=== PATIENT | female | born 1970 | race Caucasian/White ===

== ENCOUNTER → 2021-07-26 10:17 | Outpatient (BNVA) | payer OTHER, SELFPAY | PROVIDERS: PCP Internal Medicine; Referring Provider Internal Medicine; Visit Provider Nurse Practitioner Family ==

== ENCOUNTER 2021-09-19 08:05 | Day surgery (SDC) | payer OTHER, SELFPAY ==
[2021-09-12 16:31] VITALS: BMI 21.4
--- NOTE | 2021-09-19 08:34 | MHC.SHP ---
Pre-Procedural Eval Section A Date of Service: 09/19/21 The patient is an INPATIENT: No The History & Physical has been completed within 30 days and I have reviewed it.: No Section B Chief Complaint: Screening Details of Present Illness: colon cancer screening Relevant Family History (Specify if Yes): No Relevant Social History: None Present Medications: see Short Stay Collaborative assessment Medical History: Significant History (Menopausal state) History of Previous Operations: No relevant previous surgery Allergies: Allergies Allergy/AdvReac Type Severity Reaction Status Date / Time No Known Allergies Allergy Verified 07/26/21 10:30 Review of Systems Sugical H&P ROS: Negative: Constitution, Cardiovascular, Respiratory and Gastrointestinal Exam Surgical H&P Exam: Normal: Heart, Normal: Lungs and Normal: Extremities Plan Diagnosis/Plan: Unchanged I have reviewed the history and physical and performed a pertinent physical examination on my patient. No changes have occurred unless specified.
--- NOTE | 2021-09-19 09:21 | HO.ANESPROP2 ---
PMFSH Active Problems Active Problems: All Active Problems (Updated 08/20/20 @ 12:54 by Sarai Mejia MD) Menopausal state (Acute) Annual physical exam (Acute) Past Medical History Medical History (Updated 08/20/20 @ 12:54 by Sarai Mejia MD) Annual physical exam Menopausal state Family History Family History (Updated 07/26/21 @ 10:41 by Osiris Bazan) Father Parkinson disease Mother Breast cancer Family history of problems with anesthesia: No Surgical History History of Problems with Anesthesia: No Social History Social History Advance Directives: No Advance Directives Information Provided: Yes Meds Allergies Allergy/AdvReac Type Severity Reaction Status Date / Time No Known Allergies Allergy Verified 07/26/21 10:30 Exam Exam Date and Time: September 19, [id number] Height,Weight and Vital Signs: Height 5 ft 3 in Weight 54.885 kg Airway Mallampati Class: I TM Dist: >3cm Neck ROM: Full Heart: rrr Lungs: cta Assessment and Plan Assessment Anesthesia Assessment: Anesthesia Plan Discussed and Chart Reviewed Final Anesthetic Review Family History of Problems with Anesthesia: No History of Problems with Anesthesia: No NPO: Yes ASA Class: I Final Preanesthetic Review: No Changes in Pt Med Stat, Meds/Allgs Chart Reviewed and Consent Obtained/Reviewed Patient Risk: Intermediate Procedure Risk: Intermediate Anesthetic Plan Anesthetic Plan: MAC: Disposition: Standard PACU
--- NOTE | 2021-09-19 09:57 | W.PM.OPN ---
Operative Note Operative Note Date of Service: 09/19/21 Narrative: Pre-op diagnosis:?Colon cancer screening Post-op diagnosis:?other (Colon polyps, diverticulosis, hemorrhoids) Procedure:? COLONOSCOPY TILL CECUM WITH BIOPSIES AND SNARE POLYPECTOMY Consent: Indications for the procedure and potential complications of bleeding, perforation, reaction to medications and missed diagnosis were discussed with the patient and informed consent was obtained. Instrument: Olympus PCF H 190 L variable stiffness pediatric colonoscope Monitoring: Vital signs and clinical assessment, intermittent blood pressure monitoring, continuous EKG monitoring, Pulse oximetry and Carbon Dioxide monitoring were done throughout the procedure. Colon withdrawl time was 20 minutes. Procedure: The patient was placed in the left lateral decubitis position and pre-procedure medications were administered. After a digital rectal examination of the ano-rectum, the video colonoscope was inserted into the rectum and advanced through the colon to the cecum. The colonoscope was slowly withdrawn in a retrograde panoramic fashion and the colon mucosa was carefully examined including a retroflexed view of the rectum. Findings and interventions are described below. Procedure Difficulty: Without difficulty Findings: Terminal Ileum: Not evaluated Cecum:? A 3-4 mm polyp next to the appendicular orifice - removed with a cold bx Ascending Colon:? Normal Transverse Colon:? Normal Descending Colon:? Moderate diverticulosis Sigmoid Colon:? Moderate diverticulosis Rectum:? A 12-15 mm hyperplastic appearing polyp removed with a cold snare. Ano-rectum:? Moderate internal hemorrhoids Colon preparation:? Good after some irrigation Impression and Post Procedure Diagnosis: Colonoscopy Findings: Two small to medium sized polyps removed Moderate diverticulosis seen in the left colon Moderate hemorrhoids on retroflexed exam. Plan: Await pathology results Patient has an appointment on 10/04/21 in the GI Clinic with Jo Michaels FNP-BC . Repeat Colonoscopy interval based on path results - in 3-5 years if polyps are adenomatous and 10 years if polyps are hyperplastic. Above findings were reviewed with the patient and colon polyps and diverticulosis handouts were given in the discharge area Surgeon:?Rambo Candelario MD Anesthesia:?JAC (Roxana Saha CRNA) Was an Dance Therapist used for this Procedure?:?Yes Dance Therapist:?Jamie Singleton Estimated blood loss (mL):?0 Pathology:?other (A- CECAL POLYP? B- RECTAL POLYP) Condition:?stable Disposition:?PACU
[2021-09-19 10:07] VITALS: BP 137/81; PULSE 82; RESP 16; TEMP 37.1; O2SAT 100
[2021-09-19] MEDS: Lactated Ringers 1,000 ML 50 ML IVCONT (10:11)
[2021-09-19 11:25] VITALS: BP 101/55; PULSE 57; RESP 14; TEMP 36.5; O2SAT 96
[2021-09-19 11:40] VITALS: BP 95/60; PULSE 71; RESP 18; O2SAT 100
[2021-09-19 11:55] VITALS: BP 122/75; PULSE 67; RESP 18; O2SAT 100
== END 2021-09-19 12:42 | disposition home or self-care (01) ==
PROVIDERS: PCP Internal Medicine; Visit Provider Internal Medicine Gastroenterology
PROC: 0DJD8ZZ Inspection of Lower Intestinal Tract, Via Natural or Artificial Opening Endoscopic (ICD-10-PCS; CPT 45378; principal; 2021-09-19 09:20)
DX: Z12.11 Encounter for screening for malignant neoplasm of colon (principal); K63.5 Polyp of colon; K62.1 Rectal polyp; K57.30 Diverticulosis of large intestine without perforation or abscess without bleeding; K64.8 Other hemorrhoids
CPT/HCPCS: 45385; 45380; 88305

== ENCOUNTER 2021-09-22 16:39 | Outpatient (REF) | payer OTHER, SELFPAY ==
--- NOTE | ~2021-09-22 | XR_ITS ---
EXAMINATION: XR ABDOMEN WITH DECUBITUS VIEWS CLINICAL INDICATION: Unspecified abdominal pain. COMPARISON: None. TECHNIQUE: AP upright and supine views of the abdomen were obtained. FINDINGS: The bowel gas pattern is normal with no evidence of ileus or obstruction. Moderate stool burden in the colon. No free air on the upright view. No unusual soft tissue calcifications are noted. IUD overlies the pelvis. The bones are unremarkable. XR/XR abdomen w decubitus IMPRESSION: Nonobstructive bowel gas pattern. Moderate stool burden predominantly in the cecum and ascending colon.
== END 2021-09-22 16:40 | disposition home or self-care (01) ==
LOC: HO.XRAY 16:39
PROVIDERS: PCP Internal Medicine; Visit Provider Nurse Practitioner
DX: R10.9 Unspecified abdominal pain (principal)
CPT/HCPCS: 74021

== ENCOUNTER → 2021-10-04 10:48 | Outpatient (BNVA) | payer OTHER, SELFPAY | PROVIDERS: PCP Internal Medicine; Referring Provider Internal Medicine; Visit Provider Nurse Practitioner Family ==

== ENCOUNTER 2025-02-04 08:06 | Outpatient (REF) | payer OTHER, SELFPAY | END 2025-02-04 08:07 | disposition home or self-care (01) | LOC: HO.HOSX 08:06 | PROVIDERS: Visit Provider Physician Assistant | DX: Z13.89 Encounter for screening for other disorder (principal) ==

== ENCOUNTER 2025-02-05 09:22 | Outpatient (REF) | payer OTHER, SELFPAY ==
--- NOTE | ~2025-02-05 | XR_ITS ---
EXAMINATION: XR KNEE 3 VIEWS LEFT HISTORY: M25.562 - Pain in left knee COMPARISON: There are no prior studies available for comparison. FINDINGS: Standing AP views of both knees and additional lateral and sunrise patellar views of the left knee are submitted. Osseous mineralization is normal. There is no fracture or dislocation. The joint spaces are preserved. The soft tissues are unremarkable. There is no joint effusion. XR/XR knee LT 3V IMPRESSION: Unremarkable examination of the left knee. Electronically signed by: Noe Cantu MD 02/05/2025 10:57 AM EDT
== END 2025-02-05 09:23 | disposition home or self-care (01) ==
LOC: HO.HOSX 09:22
PROVIDERS: PCP Internal Medicine; Visit Provider Physician Assistant
DX: M25.562 Pain in left knee (principal)
CPT/HCPCS: 73562

== ENCOUNTER 2025-02-05 09:22 | Outpatient (AMB) | payer OTHER, SELFPAY ==
--- NOTE | 2025-02-05 09:31 | A.OFFVIS_ITS ---
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 Intake Note: Lora is a 54 year old female who presents today as a new patient with complaints of Left Knee Pain. Patient reports ongoing left knee pain for about 4-5 months. She denies injury. She explains that her pain is very mild, she has a focal point of pain that is felt at the lateral tibial plateau only with kneeling. She is a runner and she can run with no symptoms. She has been helping her son move furniture as he is moving out, but she does not recall hurting it. 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 She states that the pain is only present when she kneels down on the left knee. She is an avid runner and runs approximately 4 miles every other day but does not feel pain when she is running. She denies any catching or locking sensations. No pain with twisting or pivoting. She has no discomfort with going up and downstairs. She has had no treatment to date. [facility] Medical History (Updated 02/05/25 @ 10:04 by Ledy Powell PA-C) Hearing loss Normal breast exam Normal pelvic exam Menopausal state Annual physical exam Surgical History (Updated 02/15/22 @ 10:13 by Sarai Mejia MD) Hx of colonoscopy Family History Father Parkinson disease Mother Breast cancer Social History (Updated 02/15/22 @ 10:09 by Sarai Mejia MD) Household Members Other:: exercise 4 x a week, well balanced Housing: House Patient Tobacco Use Status: Never used Tobacco e-Cigarette/Vaping Use: Never Used Second Hand Smoke Exposure: No service: No Current occupational status: employed Cognitive needs: No Hearing needs: No Vision needs: No Review of Systems Const All systems reviewed & are unremarkable except as noted in HPI and below Physical Exam Const General: cooperative and no acute distress Orientation/consciousness: patient oriented x3 Resp Effort & Inspection: normal respiratory effort and able to speak in complete sentences Cardio Peripheral pulses: Peripheral pulses 2+ throughout Neuro General: patient oriented x3 Extrem Other: Left knee is normal to inspection. She has full range of motion with no crepitus. No tenderness with patellar grind. She does have some notable lateralization of the patella with range of motion. Calf is supple and nontender neurovascularly intact. Results Reviewed Results Reviewed: X-rays of the left knee obtained in the office today and reviewed by me show well-preserved joint space with mild lateralization of the patella. Assessment & Plan Assessment & Plan (1) Chondromalacia of left patella: Code(s): M22.42 - Chondromalacia patellae, left knee Category: Medical Plan: An order for physical therapy was placed to work on conditioning and posterior chain exercises. I explained to the patient with activities such as running and is important to work on conditioning exercises that help offset the load distributed through the knee. This will help to prevent further injury. She will increase activities as tolerated. I did recommend ibuprofen 800 mg 3 times a day for 2 weeks to help with a flare-up. She will contact our office if symptoms persist or worsen otherwise follow up as needed. Orders: Orders PT Evaluation and Treatment Today M22.42 - Chondromalacia patellae, left knee XR knee LT 3V Today M25.562 - Pain in left knee XR knee RT 1V Today M25.561 - Pain in right knee Coding Level of Care Code New Pt Level 3 (22702) Complex EM visit Add On G2211 Diagnoses Chondromalacia of left patella M22.42
== END 2025-02-05 10:18 | disposition home or self-care (01) ==
LOC: HO.HOS 09:22
PROVIDERS: PCP Internal Medicine; Visit Provider Physician Assistant
DX: M22.42 Chondromalacia patellae, left knee (principal)
CPT/HCPCS: 99203

== ENCOUNTER → 2025-02-05 09:50 | Outpatient (BNV) | payer OTHER, SELFPAY | PROVIDERS: PCP Internal Medicine; Visit Provider Radiology Diagnostic Radiology | DX: M25.562 Pain in left knee (principal) | CPT/HCPCS: 73562 ==

== ENCOUNTER 2025-06-24 11:42 | Outpatient (REF) | payer OTHER, SELFPAY ==
--- NOTE | ~2025-06-24 | XR_ITS ---
CLINICAL HISTORY: M79.641 - Pain in right hand 3 view right hand Comparison: None provided Findings: No fractures or dislocations. Mild multifocal degenerative changes greatest at the 1st metacarpophalangeal joint. This is within the region of the arrow marker. No erosions. No radiopaque foreign body. IMPRESSION: Mild multifocal degenerative changes greatest at the 1st metacarpophalangeal joint. This is within the region of the arrow marker. This document has been electronically signed by: Truong Dawson DO on 06/25/2025 10:22:06
--- OUTSIDE RECORDS SUMMARY | 2025-06-24 12:38 | XMS_ITS | Encounter Summary ---
Author Organization [facility] Address [address] [place] [id number] Care Team Providers Care Black Powder Glazing Operator Name Role Phone Unavailable Primary Care Provider Unavailabl e Encounter Details Date Type Department Care Team (Late st Contact Info) Description 01/17/2021 Orders Only Surgery [address] [place] [id number] Juan Carlos Turner MD [address] [place] [address] Social History Tobacco Use Types Packs/Day Years Used Date Smoking Tobacco: Never Assessed Comments Unknown Sex and Gender Information Value Date Recorded Sex Assigned at Not on file Legal Sex Female 8:03 AM EST Gender Identity Not on file Sexual Orientation Not on file documented as of this encounter Plan of Treatment Not on file documented as of this encounter Visit Diagnoses Not on filedocumented in this encounter
--- OUTSIDE RECORDS SUMMARY | 2025-06-24 12:38 | XMS_ITS | Clinical Summary ---
Author Organization [facility] Address [address] [place] [address] Care Team Providers Care Dog Races Manager Name Role Phone Amber Gross MD Unavailable [phone] Colette Cantu PA-C Primary Care Provider [phone] Allergies No known active allergies Medications valACYclovir (VALTREX) 1000 MG tablet TAKE TAKE 2 TABLETS AT ONSET OF SYMPTOMS, REPEAT DOSE 12 HOURS LATER 04/04/2025 Active Yuvafem 10 MCG vaginal tablet 05/02/2025 Acti ve Active Problems Problem Noted Date Diagnosed Date Family history of malignant neoplasm of breast 0 05/05/2025 Family history of malignant neoplasm of male amaris ast 05/05/2025 Encounters Date Type Department Care Team Description 05/05/2025 3:[address] [facility] Breast Care & Surgery [address] [phone] Yulissa See MD Caprio, Kimberly A, MD Family history of malignant neoplasm of breast (Primary Dx); Family history of malignant neoplasm of male breast 05/05/2025 2:40 PM EDT Ancillary Procedure [facility] [address] [place] [phone] Provider, File Room 05/05/2025 2:35 PM EDT Ancillary Procedure [facility] [address] [place] [address] Provider, File Room 05/05/2025 2:30 PM EDT Ancillary Procedure [facility] [address] [place] [phone] Provider, File Room 05/05/[address] [facility] Breast Care & Surgery [address] [phone] Thais Cruz MA Cancer Risk Assessment 05/05/[address] [facility] Breast Care & Surgery [place] [address] [facility] [address] [place] [phone] Shawn Brooks MD 05/05/2025 Travel 04/23/[address] [facility] Breast Care & Surgery [address] [phone] Janice Gonzalez MD from Last 3 Months Family History Medical History Relation Name Comments Breast cancer Maternal Cousin 1 Breast cancer Maternal Cousin 2 pauly Breast cancer Mother Relation Name Status Comments Maternal Cousin 1 Maternal Cousin 2 pauly Mother Social History Tobacco Use Types Packs/Day Years Used Date Smoking Tobacco: Never Smokeless Tobacco: Never Tobacco Cessation:Counseling Given: Not Answered Alcohol Use Standard Drinks/Week Comments Never 0 (1 standard drink = 0.6 oz pur e alcohol) Comments Unknown Sex and Gender Information Value Date Recorded Sex Assigned at Female 05/05/2025 2:00 PM EDT Legal Sex Female 6:43 PM EST Gender Identity Female 05/05/2025 2:00 PM EDT Sexual Orientation Heterosexual (straight) 05/05 2:00 PM EDT Last Filed Vital Signs Vital Sign Reading Time Taken Comments Blood Pressure - - Pulse 60 05/05/2025 2:44 PM EDT Temperature - - Respiratory Rate - - Oxygen Saturation - - Inhaled Oxygen Concentration - - Weight 54.4 kg (120 lb) 05/05/2025 2:44 PM EDT Height 160 cm (5' 3 ) 05/05/2025 2:44 PM EDT Body Mass Index 21.26 05/05/2025 2:44 PM EDT Plan of Treatment Upcoming Encounters Date Type Department Care Team (Late st Contact Info) Description 07/03/2025 9:30 AM EDT Clinical Support [facility] [address] [phone] Janice Gonzalez MD [address] [place] [phone] Tom Car MD [address] [place] [address] Paul Hankins, [facility] [address] [facility] [place] [address] Health Maintenance Due Date Last Done Comments Hepatitis C Virus Screening 1969 HIV Screening 1982 DTaP/Tdap/Td Vaccines (1 - Tdap) 1988 Hepatitis B Vaccines (1 of 3 - 19+ 3-dose series) 1988 Pap Smear (Ages 21-65) 1990 Colonoscopy 2014 Pneumococcal Vaccines 50+ (1 of 1 - PCV) 2019 Zoster (Shingles) Vaccine (1 of 2) 2019 COVID-19 Vaccine (3 - season) 2024, 11/04/2020 Influenza Vaccine 06/12/2025 Mammogram 05/05/2027 05/05/2025, 05/05/2025 Procedures Procedure Name Priority Date/Time Associated Diagnosis Comments MM MAMMO SCREENING W/ TOMOSYNTHESIS BILATERAL Routine 05/05/2025 2:34 PM EDT MG SCREENING ARCHIVE FOR REFERENCE ONLY Routine 05/05/2025 2:34 PM EDT MM MAMMO SCREENING W/ TOMOSYNTHESIS BILATERAL Routine 05/05/2025 2:31 PM EDT MG SCREENING ARCHIVE FOR REFERENCE ONLY Routine 05/05/2025 2:30 PM EDT MG SCREENING MAMMOGRAM WITH TOMOSYNTHESIS Routine 05/05/2025 2:30 PM EDT MG SCREENING ARCHIVE FOR REFERENCE ONLY Routine 05/05/2025 2:28 PM EDT from Last 3 Months Results * MM Breast tomosynthesis screening-Bilateral (05/05/2025 2:34 PM EDT) Only the most recent of2 resultswithin the time period is included. Anatomical Region Laterality Modality Breast Bilateral Mammography us External Provider MD [facility] ORDERABLES Final Result * MG Screening Archive for Reference Only (05/05/2025 2:34 PM EDT) Only the most recent of3 resultswithin the time period is included. Narrative JOANNA - 05/05/2025 2:34 PM EDT This study has been auto finalized and does not contain a result. us File Room Provider IMG DIGITIZE FILMS Final Resu lt JOANNA [phone] * MG SCREENING MAMMOGRAM WITH TOMOSYNTHESIS (05/05/2025 2:30 PM EDT) Anatomical Region Laterality Modality Other External Provider MD [facility] Final Result from Last [address] [place] [address] [facility] HMO Care Teams Dog Races Manager Relationship Specialty Start Date End Date Colette Cantu PA-C [address] [place] [phone] PCP - General Medicine Hospitalist 03/06/25 Amber Gross MD [address] [place] [address] [address] [place] [address] Physician Obstetrics and Gynecology 03/06/25
--- OUTSIDE RECORDS SUMMARY | 2025-06-24 12:38 | XMS_ITS | Patient Health Record ---
Author Organization [facility] Address [address] [facility] [address] [place] [address] Care Team Providers Care Waiter/Waitress Buffet Name Role Phone DIANE BRYAN Unavailable [phone] Allergies No Known Allergies Reason For Referral No Information Medications Medication SIG (Take, Route, Frequency, Duration) Notes Start Date End Date Status Clotrimazole-Betamethasone 1-0.05 % 1 application Externally Twice a day; Duration: 10 days 05/05/2024 Active Iron 325 (65 Fe) MG 1 tablet Orally Thre e times a Week; Duration: 30 day(s) Active Multi Vitamin Daily - 1 tablet Orally On ce a day; Duration: 30 day(s) Active Vitamin D 1000 UNIT 1 tablet Orally Once a day; Duration: 30 day(s) Active Social History Tobacco Use: Social History Observation Description Date Details (start date - stop date) Former Smoker NA - NA Tobacco Use/Smoking Question Answer Notes Are you a former smoker How long has it been since you last smoked? > 10 years Alcohol Screen (Audit-C) Question Answer Notes Did you have a drink containing alcohol in the p ast year? No Points 0 Interpretation Negative Sexual History Question Answer Notes Had sex in the past 12 months (vaginal, oral, or anal)? Yes with Men only Have you ever had a Sexually transmitted disease ? No Problems Problem Type SNOMED Code ICD Code Onset Dates Problem Status W/U Status Risk Notes Problem Abnormal uterine and vaginal bleeding, unspecified (N93.9) Active confirmed Plan Of Treatment Pending Test Test Name Order Date Sonohysterogram 08/22/2022 Test, Urine 08/22/2022 ANTI-HEPATITIS C 06/20/2022 HCG PLUS BETA 01/29/2019 HEP. B SURF. AG 06/20/2022 SYPHILIS TESTING 06/20/2022 HIV AB-AG 4TH GENERATION 06/20/2022 MM Digital Screening Mammogram 3D 2022 MM Digital Screening Mammogram 3D 2020 MM Digital Screening Mammogram 3D 2021 Insurance Providers Payer Name Payer Address Payer Phone Subscriber Number Group Number Insured Name Patient Relationship to Insured Coverage Start Date Coverage End Date [employer] [facility] [address] [address] [place] [address] [id number] CHERELLE PETERSEN Self - patient is the insured Medical (General) History Medical History History ICD Code Unspecified hearing loss, bilateral H91. 93 Amenorrhea, unspecified N91.2 Unspecified chronic otitis externa, left ear H60.62 Other specified noninflammatory disorder s of vagina N89.8 Surgical History Surgery Date(Month/Year) liposuction and skin removal of upper le gs 01/2021 Hospitalization History Reason Date(Month/Year) 2 Vaginal Deliveries
--- OUTSIDE RECORDS SUMMARY | 2025-06-24 12:38 | XMS_ITS | Clinical Summary ---
Author Organization [facility] Address [address] [place] [address] Care Team Providers Care Practical Nursing Instructor Name Role Phone Sarai Mejia MD Primary Care Provider [phone] Immunizations Name Administration Dates Next Due Covid-19 (Pfizer) Dilution Required 11/04/2020 Family History Medical History Relation Name Comments Breast cancer Cousin ? AGE Breast cancer Maternal Aunt ? AGE Colon cancer Neg Hx Endometrial cancer Neg Hx Ovarian cancer Neg Hx Relation Name Status Comments Cousin Maternal Aunt Social History Tobacco Use Types Packs/Day Years Used Date Smoking Tobacco: Never Assessed Sex and Gender Information Value Date Recorded Sex Assigned at Female 11/04/2020 3:26 PM EST Gender Identity Not on file Sexual Orientation Not on file Job Start Date Occupation Industry Not on file Not on file Not on file Plan of Treatment Health Maintenance Due Date Last Done Comments Hepatitis B Vaccines (1 of 3 - 3-dose series) 1969 Hepatitis C Screening 1969 Depression Screening 1981 Preventative Health Evaluation 1987 DTap / Tdap / Td (1 - Tdap) 1988 Cervical Cancer Screening (P ap Smear) 1990 Colon Cancer Screening (Colonoscopy) 2014 Shingrix-Zoster Vaccine (1 of 2) 2019 Breast Cancer Screening (Mammogram) 11/26/2020 11/26/2018 COVID-19 Vaccine (2023-2 5 season) 2024 11/04/2020 Influenza Vaccine (#1) 2025 Pneumococcal Vaccine Aged Out No long er eligible based on patient's age to complete this topic RSV Ped < 20 months Aged Out No longe r eligible based on patient's age to complete this topic Care Teams Practical Nursing Instructor Relationship Specialty Start Date End Date Sarai Mejia MD [address] [facility] [place] Ricks [phone] PCP - General Home Health Assistant 11/26/18
== END 2025-06-24 11:43 | disposition home or self-care (01) ==
LOC: HO.HOSX 11:42
DX: M18.11 Unilateral primary osteoarthritis of first carpometacarpal joint, right hand (principal); M79.641 Pain in right hand
CPT/HCPCS: 73130

== ENCOUNTER 2025-06-24 11:45 | Outpatient (AMB) | payer OTHER, SELFPAY ==
[2025-06-24 11:49] VITALS: BMI 22.0
--- NOTE | 2025-06-24 11:49 | A.OFFVIS_ITS ---
Vital Signs 06/24/25 11:49 Height 5 ft 3 in Weight 124 lb BMI 22.0 Intake Visit Reasons: New prob-Rt hand pain Intake Note: Lora is a 55 year old left hand dominant female who presents today for a new problem visit to evaluate her right hand pain. Patient states about 1 month ago she was helping her son move to a new condo, thinks she might have injured it then. Her pain is primarily at the base of the right thumb with no associated numbness or tingling. Denies finger locking. Patient states she was seen at [facility] where she was diagnosed with arthtritis and given a hand brace. She continues wearing the brace when needed and taking Ibuprofen. Denies previous injuries or surgeries to the right hand. Allergies No Known Allergies Allergy (Verified 06/24/25 11:51) HPI HPI New prob-Rt hand pain: Details: Lora is a 55 year old left hand dominant female who presents today for a new problem visit to evaluate her right hand pain. Patient states about 1 month ago she was helping her son move to a new condo, thinks she might have injured it then. Her pain is primarily at the base of the right thumb with no associated numbness or tingling. Denies finger locking. Patient states she was seen at [facility] where she was diagnosed with arthtritis and given a hand brace. She continues wearing the brace when needed and taking Ibuprofen. Denies previous injuries or surgeries to the right hand. [facility] Medical History (Updated 06/24/25 @ 14:11 by JALIL Deluca) Hearing loss Normal breast exam Normal pelvic exam Menopausal state Annual physical exam Surgical History (Updated 02/15/22 @ 10:13 by Sarai Mejia MD) Hx of colonoscopy Family History Father Parkinson disease Mother Breast cancer Social History (Updated 06/24/25 @ 11:58 by SUJIT Martinez) Household Members Other:: exercise 4 x a week, well balanced Housing: House Patient Tobacco Use Status: Never used Tobacco e-Cigarette/Vaping Use: Never Used Second Hand Smoke Exposure: No service: No Current occupational status: employed 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 Neuro: Normal sensation of the tips of all digits of the right hand at this time Vascular: Cap refill brisk Pain: No tenderness to palpation of right radial styloid Negative Sriram on the right Positive CMC grind on the right No pain with varus and valgus testing or palpation of the MCP joint of the right thumb ROM: Patient is able to make a closed fist and extend all digits of the right hand fully Skin: No lacerations or abrasions. General: No ecchymosis, erythema, or evidence of infection. Psych: Appears grossly normal Affect normal Attitude cooperative Results Reviewed Results Reviewed: X-rays obtained in the office today and independently reviewed by me, Isaac Harrison PA-C, demonstrate moderate osteoarthritis of the CMC joint of the right thumb Assessment & Plan Assessment & Plan (1) Arthritis of carpometacarpal (CMC) joint of right thumb: Code(s): M18.11 - Unilateral primary osteoarthritis of first carpometacarpal joint, right hand Category: Medical Plan 1. 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 Patient is educated about this condition Patient is educated about the treatment options available, namely bracing, OT, injections, or surgery if more conservative pain management measures are ineffective The patient states that she is interested in an injection in the right thumb, however she states that she would like to have this injection performed under x- ray guidance to ensure that the injection is into the joint itself Patient is educated that typically the injection is performed without x-ray, and x-ray guidance is normally reserved for patients with very narrow joint space and there is difficulty navigating the needle into the joint without guidance However, the patient states that due to her anxiety, she feels that injection under x-ray is the best option for her Therefore, patient is placed a referral for the next available appointment with Dr. Sousa for a basal joint injection under x-ray Patient understands this in his amenable to this plan May continue wearing her brace for symptomatic management Follow-up for next available appointment for right basal joint injection under x-ray guidance with Dr. Sousa, sooner with any acute concerns Orders: Orders XR hand RT min 3V Today M79.641 - Pain in right hand Coding Level of Care Code New Pt Level 3 (60574) Diagnoses Arthritis of carpometacarpal (CMC) joint of right thumb M18.11
== END 2025-06-24 12:13 | disposition home or self-care (01) ==
PROVIDERS: PCP Internal Medicine
DX: M18.11 Unilateral primary osteoarthritis of first carpometacarpal joint, right hand (principal)
CPT/HCPCS: 99213

== ENCOUNTER → 2025-06-24 11:46 | Outpatient (BNV) | payer OTHER, SELFPAY | PROVIDERS: Visit Provider Family Medicine | DX: M18.11 Unilateral primary osteoarthritis of first carpometacarpal joint, right hand (principal) | CPT/HCPCS: 73130 ==

== ENCOUNTER 2025-07-08 09:17 | Outpatient (AMB) | payer OTHER, SELFPAY ==
--- OUTSIDE RECORDS SUMMARY | 2024-05-12 10:00 | XMS_ITS ---
Author Organization [employer] [facility] Address [address] [address] Care Team Providers Care Collar Fuser Name Role Phone BRYANDIANE Unavailable [phone] REASON FOR VISIT VAGINAL ISSUES Encounters Encounter Location Date Provider Diagnosis [facility] [address] [address] 05/12/2024 DIANE BRYAN Other specified noninflammatory disorders [...] * CHERELLE PETERSENDOB: 9 (55 yo F)Acc No.[id number]:05/12/2024 PROGRESS NOTES Patient: CHERELLE ALCANTARA Provider: Tiera BRYAN MD :1970 A ge:54 Y S ex:Female Date:05/12/2024 Address: [place], [place] [id number] Subjective: * Chief Complaints: * 1 . [...] APPEARANCE: a lert, oriented, no apparent distress, infection control practitioner present in room. ABDOMEN: soft, non-tender, no [...] Electronic signature of DIANE BRYAN MD on 07/08/2025 at 09:50 AM EDT Sign off status: Pending * Provider: Tiera BRYAN MD Date: 05/12/2024 Generated for Printi ng/Faxing/eTransmitting on: 07/08/2025 09:50 AM EDT History and Physical Notes * Examination Category Sub-Category Detail Notes Category Not es Genitourinary - Female ABDOMEN: soft, non-tender, no mass EXTERNAL GENITALS: VAGINA: CERVIX: UTERUS: normal size, mobile, non tender OVARIES: no masses felt in ad nexa, nontender GENERAL APPEARANCE: alert, oriented, no apparent distress, infection control practitioner present in room URETHRAL MEATUS: normal URETHRA: normal ANUS/PERINEUM: appears normal
--- OUTSIDE RECORDS SUMMARY | 2024-10-03 07:00 | XMS_ITS ---
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 Annual DRUG SAFETY ASSISTANT Physical. 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 She has been in state of good health since her last exam. She has the following concerns: She has received the [employer] Covid-19 vaccine and booster. Relationship status: *single. [...] is due in 10 yrs, done at [place]. The patient does* exercise. She exercises x 4 days/week by running. She no longer lifts weights. * ROS: A nnual Plate Cutter Exam ROS: Bowel habit changes d enies. [...] no acute distress, well developed, well nourished, film examiner present in room. HEAD: n ormocephalic, atraumatic. [...] * Follow Up: 1 Year (Reason: Yearly Plate Cutter Exam) * Images: Billing Information: * Visit Code: [id number] Preventive Care Est Pt. Age 40-64. * Procedure Codes: * Electronic signature of DIANE BRYAN MD on 07/08/2025 at 09:50 AM EDT Sign off status: Pending * Provider: Tiera BRYAN MD Date: 12/03/2023 Generated for Colin merrill/Fay/eTransmitting on: 0 07/08/2025 09:50 AM EDT History and Physical Notes * HPI (History of Present Illness) Category Sub-Category Detail Notes Category Not es Constitutional Cherelle is a 54yo with LMP 10/2022 who presents for her yearly nurse gynecology exam. She has been in state of good health since her last exam. She has the following concerns: She has received the [employer] Covid-19 vaccine and booster. Relationship status: *single. [...] is due in 10 yrs, done at [place]. The patient does* exercise. She exercises x 4 days/week by running. She no longer lifts weights. Examination Category Sub-Category Detail Notes Category Not es General Examination GENERAL APPEARANCE: in no ac big sandy distress, well developed, well nourished, film examiner present in room HEAD: normocephalic, atrau matic [...]
--- NOTE | 2025-07-08 09:30 | A.OFFVIS_ITS ---
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 Allergies No Known Allergies Allergy (Verified 07/08/25 09:32) HPI HPI INJ-R basal inj under xr: Details: Lora is a 55 year old right hand dominant woman who presents to discuss her right basal joint osteoarthritis. She complains of pain at the base of her thumb, worse with pinching & gripping activities. She says she had been wearing a stiff thumb spica wrist splint, which she says was not helping her and was limited her daily function because it is so long . She had not been wearing her splint recently. She says she has similar pain in her left thumb, but her right began hurting first a few months ago. She had questions about the injection procedure. She denies any numbness or tingling. She denies any locking or catching. She works here in [facility] in [employer] but denies being responsible for performing restraints. Most of her work is on the computer. She cares for her elderly mother, which she finds physically difficult. She used to be an active runner but says she had to slow down due to generalized joint pain, particularly of her knees. She is [id number] and wears hearing aids. 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 Cognitive needs: No Hearing needs: No Vision needs: No Review of Systems Const All systems reviewed & are unremarkable except as noted in HPI and below Physical Exam Const General: cooperative, healthy appearing and no acute distress Orientation/consciousness: patient oriented x3 HEENT Head: Yes normocephalic and Yes atraumatic Eyes EOM: EOMs intact bilaterally Resp Effort & Inspection: normal respiratory effort and able to speak in complete sentences Cardio Jugular venous distension: no JVD Skin General skin exam: turgor normal Rashes: no rashes Neuro General: patient oriented x3 Extrem Other: Evaluation of Right Upper Extremity: The patient is alert, oriented, and in no acute distress Neuro: Median, Ulnar, Radial nerves motor and sensory intact and sensation is normal to the tips of all digits Vascular: Cap refill brisk ROM: She can make a fist and extend all her digits No locking or catching No pain with wrist ROM Skin: No lacerations or abrasions. General: No Ecchymosis. No Erythema or evidence of infection. Mild tenderness over the basal joint bilaterally, R>L Mild shoulder sign on the right Radiographs: 3 views of the right hand from 06/25/25 were reviewed by me today in clinic. They show basal joint arthritis with joint space narrowing & subchondral sclerosis Psych Appearance: grossly normal Affect: normal affect Attitude: cooperative Assessment & Plan Assessment & Plan (1) Arthritis of carpometacarpal (CMC) joint of right thumb: Code(s): M18.11 - Unilateral primary osteoarthritis of first carpometacarpal joint, right hand Category: Medical (2) Arthritis of carpometacarpal (CMC) joint of left thumb: Code(s): M18.12 - Unilateral primary osteoarthritis of first carpometacarpal joint, left hand Category: Medical (3) Hearing loss: Comment: wears hearing aids Code(s): H91.90 - Unspecified hearing loss, unspecified ear Category: Medical Plan Assessment & Plan: 1. Right basal joint osteoarthritis, early I educated her about this condition I discussed non-operative treatment options, including injections No intervention indicated at this time, and she is in agreement. It sounds like her thumb pain has improved with activity modification in her personal life I discussed activity modification, they should limit or avoid any heavy or repetitive pinching or gripping activities She was fitted for a new short arm comfort cool brace to wear with daily activity She should work on ROM exercises, and avoid any gripping or strengthening activities I discussed the use of assistive devices for daily activity She will follow up prn, if her symptoms increase in frequency or severity she may benefit from a steroid injection 2. Left basal joint arthrosis, based on history & PE Radiographs to confirm at a later date I discussed activity modification, they should limit or avoid any heavy or repetitive pinching or gripping activities She was fitted for a new short arm comfort cool brace to wear with daily activity She should work on ROM exercises, and avoid any gripping or strengthening activities I discussed the use of assistive devices for daily activity Scribed for Roseline Sousa MD by Addy Lira, medical supply technician, on 07/08/25 at 9:45 AM, EST. Coding Level of Care Code Est Pt Level 3 (63060) Diagnoses Arthritis of carpometacarpal (CMC) joint of right thumb M18.11 Arthritis of carpometacarpal (CMC) joint of left thumb M18.12 Hearing loss H91.90
--- OUTSIDE RECORDS SUMMARY | 2025-07-08 09:50 | XMS_ITS | Patient Health Record ---
Author Organization [facility] Address [address] [place] [address] Care Team Providers Care Door Paneler Name Role Phone DIANE BRYAN Unavailable [phone] Allergies No Known Allergies Reason For Referral [...] W/U Status Risk Notes Problem Abnormal uterine bleeding ([id number]) Abnormal uterine and vaginal bleeding, unspecified (N93.9) [...] Date Coverage End Date [employer] [facility] [address] [address] [place] [address] [id number] CHERELLE PETERSEN Self - patient is the [...]
--- OUTSIDE RECORDS SUMMARY | 2025-07-08 09:50 | XMS_ITS ---
Author Name [facility] Organization Unknown History of Medication Use Medication Directions Dispensed Refills Start Date End Date Stat us Yuvafem 10 MCG vaginal tablet 05/02/2025 active valACYclovir (VALTREX) 1000 MG tablet TAKE TAKE 2 TABLETS AT ONSET OF SYMPTOMS, REPEAT DOSE 12 HOURS LATER 04/04/2025 active Problems Problem Status Onset Date Problem Type Date of Resoluti on Source Genetic testing active EncounterDiagnosisAct CCT Encounters Encounter Type Encounter Reason Primary Diagnosis Location Date Ambulatory Encounter for other screening for genetic and chromosomal anomalies Encounter for other screening for genetic and chromosomal anomalies [facility] 07/03/2025 Ambulatory Encounter for other screening for genetic and chromosomal anomalies Encounter for other screening for genetic and chromosomal anomalies [facility] 07/03/2025 Ambulatory [facility] 05/05/2025 Ambulatory [facility] 05/05/2025 Ambulatory [facility] 05/05/2025 Ambulatory Family history of malignant neoplasm of breast Family history of malignant neoplasm of breast [facility] 05/05/2025 Care Team Organization Name Specialty Phone Email Start Date End Da te [facility] VARUN Primary Care 05/05/2025 [facility] LUISITO BOND Primary Care 03/06/2025 [facility] NO PCP Primary Care 03/06/2025
== END 2025-07-08 10:08 | disposition home or self-care (01) ==
LOC: HO.HOS 09:18
PROVIDERS: PCP Internal Medicine; Visit Provider Orthopaedic Surgery
DX: M18.0 Bilateral primary osteoarthritis of first carpometacarpal joints (principal); H91.90 Unspecified hearing loss, unspecified ear
CPT/HCPCS: 99213

== ENCOUNTER 2025-10-30 10:14 | Outpatient (AMB) | payer OTHER, SELFPAY ==
--- OUTSIDE RECORDS SUMMARY | 2024-05-12 09:00 | XMS_ITS ---
Author Organization [employer] [facility] Address [address] [address] Care Team Providers Care Cardiovascular Technician Name Role Phone BRYANDIANE Unavailable [phone] REASON FOR VISIT VAGINAL ISSUES Encounters Encounter Location Date Provider Diagnosis [facility] [employer] [address] [address] 05/12/2024 DIANE BRYAN Other specified noninflammatory disorders of vagina N89.8 ; Acute vaginitis N76.0 ; Urogenital trichomoniasis, unspecified A59.00 and Acute candidiasis of vulva and vagina B37.31 Assessments Encounter Date Diagnosis (ICD Code) Assessment Notes Treatment Notes Treatment Clinical Notes Section Notes 05/12/2024 Other specified noninflammatory disorders of vagina (ICD-10 - N89.8) Vaginal discharge 05/12/2024 Acute vaginitis (ICD-10 - N76.0) BV 05/12/2024 Urogenital trichomoniasis, unspecified (ICD-10 - A59.00) 05/12/2024 Acute candidiasis of vulva and vagina (ICD-10 - B37.31) Plan Of Treatment Next Appt Details Follow Up: prn, Reason: Procedure Notes * Category Sub-Category Detail Notes Wet Mount Clue cells None seen Hyphae No hyphae or buds Trichomonas None seen Progress Notes * CHERELLE PETERSENDOB: 9 (55 yo F)Acc No.[id number]:05/12/2024 PROGRESS NOTES Patient: CHERELLE ALCANTARA Provider: Tiera BRYAN MD :1970 A ge:54 Y S ex:Female Date:05/12/2024 Address: [place], [place] [id number] Subjective: * Chief Complaints: * 1 . VAGINAL ISSUES. * HPI: G YN (Problems): 54 year old female presents with c/o Vaginitis (Symptoms of):.? * ROS: G eneral/Constitutional: Patient denies f ever, chills, weight gain, weight loss.? W omen Only: Denies P ainful intercourse. A dmits V aginal discharge/itching. G enitourinary: Denies D ifficulty urinating. D enies F requent urination. D enies P ainful urination. * Medical History: Objective: * Vitals: * Examination: G enitourinary - Female: GENERAL APPEARANCE: a lert, oriented, no apparent distress, farmer tree fruit and nut crops present in room. ABDOMEN: soft, non-tender, no mass. EXTERNAL GENITALS: . URETHRAL MEATUS: normal. URETHRA: normal. VAGINA: . ANUS/PERINEUM: appears normal. CERVIX: . UTERUS: normal size, mobile, non tender. OVARIES: no masses felt in adnexa, nontender. ? Assessment: * Assessment: 1. O ther specified noninflammatory disorders of vagina - N89.8 (Primary) N otes :Vaginal discharge 2 . A cute vaginitis - N76.0 N otes :BV 3 . U rogenital trichomoniasis, unspecified - A59.00 4 . A cute candidiasis of vulva and vagina - B37.31 Plan: * Treatment: * Procedures: W et Mount: Clue cells N one seen. Hyphae N o hyphae or buds. Trichomonas N one seen. * Follow Up: p rn * Images: Billing Information: * Visit Code: * Procedure Codes: * Electronic signature of DIANE BRYAN MD on 10/30/2025 at 11:34 AM EST Sign off status: Pending * Provider: Tiera BRYAN MD Date: 0 05/12/2024 Generated for Printi ng/Fafemig/eTransmitting on: 12/31/2024 11:34 AM EST History and Physical Notes * Examination Category Sub-Category Detail Notes Category Not es Genitourinary - Female ABDOMEN: soft, non-tender, no mass EXTERNAL GENITALS: VAGINA: CERVIX: UTERUS: normal size, mobile, non tender OVARIES: no masses felt in ad nexa, nontender GENERAL APPEARANCE: alert, oriented, no apparent distress, farmer tree fruit and nut crops present in room URETHRAL MEATUS: normal URETHRA: normal ANUS/PERINEUM: appears normal
--- OUTSIDE RECORDS SUMMARY | 2024-10-03 06:00 | XMS_ITS ---
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 Physical Encounters Encounter Location Date Provider Diagnosis [facility] [address] [address] 10/03/2024 DIANE BRYAN Encounter for gynecological examination (general) (routine) without abnormal findings Z01.419 ; Encounter for screening mammogram for malignant neoplasm of breast Z12.31 and Encounter for screening for infections with a predominantly sexual mode of transmission Z11.3 Assessments Encounter Date Diagnosis (ICD Code) Assessment Notes Treatment Notes Treatment Clinical Notes Section Notes 10/03/2024 Encounter for gynecological examination (general) (routine) without abnormal findings (ICD-10 - Z01.419) During the visit, the following areas of concern were addressed: Discussed cervical cancer screening with either cytology alone every 3 years or high risk HPV co-testing every 5 years as per ASCCP guidelines. Advised continued annual pelvic exams. Patient encouraged to increase her level of exercise. SBE technique encouraged/tau ght. Patient reminded when annual mammogram is due. Patient encouraged to keep colon screening up to date. 10/03/2024 Encounter for screening mammogram for malignant neoplasm of breast (ICD-10 - Z12.31) 10/03/2024 Encounter for screening for infections with a predominantly sexual mode of transmission (ICD-10 - Z11.3) Plan Of Treatment Treatment Notes Assessment Notes Encounter for gynecological examination (general) (routine) without abnormal findings During the visit, the following areas of concern were addressed: Discussed cervical cancer screening with either cytology alone every 3 years or high risk HPV co-testing every 5 years as per ASCCP guidelines. Advised continued annual pelvic exams. Patient encouraged to increase her level of exercise. SBE technique encouraged/taught. Patient reminded when annual mammogram is due. Patient encouraged to keep colon screening up to date. Pending Test Test Name Order Date MM Digital Screening Mammogram 3D 2023 Next Appt Details Follow Up: 1 Year, Reason: Y early Cabana Attendant Exam Progress Notes * CHERELLE PETERSENDOB: 9 (55 yo F)Acc No.[id number]:10/03/2024 PROGRESS NOTES Patient: CHERELLE ALCANTARA Provider: Tiera BRYAN MD :1970 A ge:54 Y S ex:Female Date:10/03/2024 Address:[address] [place], [place] [id number] Subjective: * Chief Complaints: * 1 . Annual SQL SERVER DBA DEVELOPER Physical. * HPI: C onstitutional: Yudy donaldson is a 54yo with LMP 10/2022 who presents for her yearly sanforizer exam. She has been in state of good health since her last exam. She has the following concerns: She has received the [employer] Covid-19 vaccine and booster. Relationship status: *single. She is not sexually active. Sexual partner(s): male. She does not wish to have STI testing. She does *not report vaginal dryness. She does* have hot flashes/night sweats - tolerable with a fan. The patient has *not had an abnormal pap smear within the last 5 years. Her most recent pap smear was 06/14/21 - NIL, neg HR HPV. Next due in 2025. She has not been diagnosed with breast cancer. She does have a family history of breast cancer - mother. Her last mammogram was 06/13/24. She does *not have a family history of colon cancer. She a has had a colonoscopy. The last colonoscopy was 09/2021 - 3 polyps removed, her followup is due in 10 yrs, done at [place]. The patient does* exercise. She exercises x 4 days/week by running. She no longer lifts weights. * ROS: A nnual Cabana Attendant Exam ROS: Bowel habit changes d enies. B ladder symptoms d enies. V aginal discharge, unusual d enies. V aginal itch or odor d enies. w eight or appetite changes d enies. C hest pains, SOB d enies. d epression d enies.? B reast: Denies B reast lump. D enies N ipple discharge.? H ematology: Denies S wollen glands. S kin: Patient denies c hanging moles. P sychiatric: Denies A nxiety. * Medical History: Objective: * Vitals: * Examination: G eneral Examination: GENERAL APPEARANCE: i n no acute distress, well developed, well nourished, filer helper present in room. HEAD: n ormocephalic, atraumatic. NECK/THYROID: n paris supple, full range of motion, thyroid normal. LYMPH NODES: n o axillary or supraclavicular adenopathy.? SKIN: normal, good turgor, no rashes, no suspicious lesions. BREASTS: normal, no dimpling, no discharge, no drainage, no masses palpable bilaterally, nontender. ABDOMEN: soft, non-tender, non distended without masses or hepatosplenomegay. RECTAL: normal tone, no masses palpable. BACK: no costovertebral angle tenderness. FEMALE GENITOURINARY: V ulva without lesions or masses, vagina pink without abnormal discharge, lesions or masses, cervix appears normal and is not tender to palpation, uterus is normal size, mobile, nontender and anteverted, ovaries are not palpable. NEUROLOGIC: alert and oriented, gait normal. PSYCH: alert, oriented, cognitive function intact, cooperative with exam, good eye contact, mood/affect full range, speech clear. Assessment: * Assessment: 1. E ncounter for gynecological examination (general) (routine) without abnormal findings - Z01.419 (Primary) 2 . E ncounter for screening mammogram for malignant neoplasm of breast - Z12.31 3 . E ncounter for screening for infections with a predominantly sexual mode of transmission - Z11.3 Plan: * Treatment: 2. E ncounter for screening mammogram for malignant neoplasm of breast I maging: MM Digital Screening Mammogram 3D * Follow Up: 1 Year (Reason: Yearly Cabana Attendant Exam) * Images: Billing Information: * Visit Code: [id number] Preventive Care Est Pt. Age 40-64. * Procedure Codes: * Electronic signature of DIANE BRYAN MD on 10/30/2025 at 11:35 AM EST Sign off status: Pending * Provider: Tiera BRYAN MD Date: 12/03/2023 Generated for Colin merrill/Fay/eTransmitting on: 12/31/2024 11:35 AM EST History and Physical Notes * HPI (History of Present Illness) Category Sub-Category Detail Notes Category Not es Constitutional Cherelle is a 54yo with LMP 10/2022 who presents for her yearly sanforizer exam. She has been in state of good health since her last exam. She has the following concerns: She has received the [employer] Covid-19 vaccine and booster. Relationship status: *single. She is not sexually active. Sexual partner(s): male. She does not wish to have STI testing. She does *not report vaginal dryness. She does* have hot flashes/night sweats - tolerable with a fan. The patient has *not had an abnormal pap smear within the last 5 years. Her most recent pap smear was 06/14/21 - NIL, neg HR HPV. Next due in 2025. She has not been diagnosed with breast cancer. She does have a family history of breast cancer - mother. Her last mammogram was 06/13/24. She does *not have a family history of colon cancer. She a has had a colonoscopy. The last colonoscopy was 09/2021 - 3 polyps removed, her followup is due in 10 yrs, done at [place]. The patient does* exercise. She exercises x 4 days/week by running. She no longer lifts weights. Examination Category Sub-Category Detail Notes Category Not es General Examination GENERAL APPEARANCE: in no ac yuli distress, well developed, well nourished, filer helper present in room HEAD: normocephalic, atrau matic NECK/THYROID: neck supple, full ra nge of motion, thyroid normal ABDOMEN: soft, non-tender, no n distended without masses or hepatosplenomegay NEUROLOGIC: alert and oriented, gait normal SKIN: normal, good turgor, no rashes, no suspicious lesions BACK: no costovertebral an gle tenderness BREASTS: normal, no dimpling, no discharge, no drainage, no masses palpable bilaterally, nontender LYMPH NODES: no axillary or supra clavicular adenopathy RECTAL: normal tone, no mass es palpable PSYCH: alert, oriented, cog nitive function intact, cooperative with exam, good eye contact, mood/affect full range, speech clear FEMALE GENITOURINARY: Vulva without lesi ons or masses, vagina pink without abnormal discharge, lesions or masses, cervix appears normal and is not tender to palpation, uterus is normal size, mobile, nontender and anteverted, ovaries are not palpable
[2025-10-30 10:15] VITALS: BP 120/82; PULSE 90; TEMP 36.6; O2SAT 99; BMI 22.3
--- NOTE | 2025-10-30 10:15 | MHC.OFFWIV ---
Intake Vital Signs 10/30/25 10:15 Height 5 ft 3 in Weight 126 lb BMI 22.3 BP 120/82 Blood Pressure Location Lt brachial Position Sitting Pulse 90 Pulse Source Pulse Oximeter Temp 97.9 F Temp Source Oral Pulse Oximetry (%) 99 Oxygen Delivery Method Room Air Intake Visit Reasons: EP - ?Ear infection Intake Note: EP complains of itchy ears and watery discharge (she feels her right ear is wet and the left ear is itchy) for the last four days. Patient Tobacco Use Status: Never used Tobacco Allergies No Known Allergies Allergy (Verified 10/30/25 10:25) Do you need a note to return to daycare/school/sports/work: No HPI HPI Comments History of Present Illness Details History of Present Illness The patient is a 55 year old female with a PMH of partial hearing loss requiring hearing aids presenting with ear symptoms. - Patient reports that she has been congested for about the last week. - over the last few days, she started noticing a sensation of her right ear dripping or feeling wet, accompanied by a popping sound when swallowing or eating. - The left ear began itching today. - She denies any fever, ear pain, or worsening of her baseline hearing loss since the symptoms started. She reports nonbloody drainage from the right ear after removing her hearing aids. - She reports a history of recurrent ear infections. - She is currently taking Flonase daily and Claritin-D to manage her symptoms Review of Systems Constitutional: Negative for fevers, chills HENT: Reports congestion. Reports right ear popping and draiange and left ear itching. Denies ear pain, ear discharge, hearing loss from baseline Physical Exam General Appearance: Normal appearance, well developed. No acute distress ENT: External ears and ear canals normal. No swelling or purulent drainage noted. Minimal cerumen noted along the right ear canal. Both TM without erythema or bulging. Middle ear effusions noted bilaterally (R>L). Head: Normocephalic, atraumatic Pulmonary: No respiratory distress. Musculoskeletal: Moving all extremities spontaneously and against gravity Mental Status: Alert and Oriented x 3 Psychiatric: Normal mood. Normal affect. 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 Cognitive needs: No Hearing needs: No Vision needs: No Physical Exam Vital Signs: Last Vital Signs Temp 97.9 F 10/30/25 10:15 Pulse 90 10/30/25 10:15 BP 120/82 10/30/25 10:15 Pulse Ox 99 10/30/25 10:15 Oxygen Delivery Method Room Air 10/30/25 10:15 BMI result Body Mass Index 22.3 Assessment & Plan Assessment & Plan (1) Eustachian tube dysfunction: Code(s): H69.90 - Unspecified Eustachian tube disorder, unspecified ear Qualifiers: Laterality: bilateral Qualified Code(s): H69.93 - Unspecified Eustachian tube disorder, bilateral Plan - The patient's symptoms of ear clicking, popping, and a sensation of fluid are consistent with Eustachian tube dysfunction, likely secondary to recent URI - Examination confirmed middle ear effusions bilaterally without signs of acute otitis media or externa. - The patient is already using Flonase and Claritin-D which she was recommneded to continue - Discussed anti-inflammatory such as ibuprofen or naproxen to be taken with food - She was counseled to return if she develops ear pain, fever, or bloody drainage from the ear. - Educational material on Eustachian tube dysfunction provided. Patient was informed and verbally consented to the use of an ambient scribe for clinic note documentation during the visit. Coding Level of Care Code Est Pt Level 3 (77083) Diagnoses Dysfunction of both eustachian tubes H69.93 Laterality: bilateral
--- OUTSIDE RECORDS SUMMARY | 2025-10-30 11:34 | XMS_ITS | Patient Health Record ---
Author Organization [facility] Address [address] [place] [address] Care Team Providers Care Prompt Care Rn Name Role Phone DIANE BRYAN Unavailable [phone] Allergies No Known Allergies Reason For Referral [...] Status Risk Notes Problem Abnormal uterine bleeding ([id number]) Abnormal uterine and vaginal bleeding, unspecified [...] Date Coverage End Date [employer] [facility] [address] [address] [place] [address] [id number] [phone] CHERELLE PETERSEN Self - patient is the [...]
--- OUTSIDE RECORDS SUMMARY | 2025-10-30 11:35 | XMS_ITS | Clinical Summary ---
Author Organization [facility] Address [address] [place] [phone] Phone Care Team Providers Care Operating Cost Clerk Name Role Phone Colette Cantu Primary Care Provider [phone] Encounters Date Type Department Care Team Description 09/28/2025 Transcribe Orders [facility] Endocrinology [facility] [address] [place] [address] Colette Cantu PA Osteoporosis, unspecified osteoporosis type, unspecified pathological fracture presence (Primary Dx) 09/14/2025 Transcribe Orders [facility] Endocrinology [facility] [address] [place] [address] Colette Cantu PA Osteoporosis with current pathological fracture, unspecified osteoporosis type, initial encounter (Primary Dx) 09/08/2025 Telephone [facility] Endocrinology [facility] [address] [place] [address] Pcp, Unknown Referral from Last 3 Months Social History Tobacco Use Types Packs/Day Years Used Date Smoking Tobacco: Never Assessed Education Answer Date Recorded Are you interested in more education? Not on criselda e 09/14/2025 Are you concerned about learning? Not on file 09/14/2025 No 09/14/2025 No 09/14/2025 Digital Access Answer Date Recorded No 09/14/2025 No 09/14/2025 Reliable internet access at home? Not on file 09/14/2025 Device with a working camera? Not on file Comments Unknown Sex and Gender Information Value Date Recorded Sex Assigned at Female 09/14/2025 9:37 AM EST Legal Sex Female 10:57 AM EDT Gender Identity Female 09/14/2025 9:36 AM EST Sexual Orientation Straight 09/14/2025 9: 36 AM EST Plan of Treatment Upcoming Encounters Date Type Department Care Team (Late st Contact Info) Description 01/07/2026 8:50 AM EST Office Visit [facility] [address] [place] [address] Ovidio Polo DO [address] [place] [id number] Health Maintenance Due Date Last Done Comments Adult Td,Tdap Booster 1969 LIPID PANEL 1969 DEPRESSION SCREENING 1981 SMOKING Hx and SMOKELESS TOB ACCO SCREENING 1982 HEPATITIS C SCREENING 1987 HIV ONE-TIME SCREENING (18-6 5 YEARS) 1987 PAP SMEAR 1990 MAMMOGRAM 2009 COLOGUARD 2014 COLONOSCOPY 2014 COLORECTAL CANCER SCREENING 2014 FIT TEST 2014 FOBT 2014 SIGMOIDOSCOPY 2014 VIRTUAL COLONOSCOPY 2014 PNEUMOCOCCAL VACCINES (50+ y ears) (1 of 1 - PCV) 2019 ZOSTER VACCINES (1 of 2) 2019 INFLUENZA VACCINE (#1) 2025 COVID-19 VACCINE (1 - 2024-2 6 season) 2025 RSV VACCINE (1 - 1-dose 75+ series) 2044 HEPATITIS A VACCINES Aged Out No long er eligible based on patient's age to complete this topic HIB VACCINES Aged Out No longer eligi ble based on patient's age to complete this topic MENINGOCOCCAL VACCINES (ACWY) Aged Out No longer eligible based on patient's age to complete this topic MENINGOCOCCAL VACCINES (B) Aged Out N o longer eligible based on patient's age to complete this topic Medical Devices Not on file Insurance [employer] Care Teams Operating Cost Clerk Relationship Specialty Start Date End Date Colette Cantu PA [address] [place] [id number] PCP - General Physician Administrative Office Manager 09/08/25 Additional Source Comments The information contained in this document represents components of the legal health record. It is not the complete legal health record.[facility]
--- OUTSIDE RECORDS SUMMARY | 2025-10-30 11:35 | XMS_ITS | Continuity of Care Document ---
Author Organization [place] - [facility], [facility] Address [address] [place] [address] Assessment Encounter Date Assessment Date Assessment LastModified by Organization Details LastModified Time 10/28/2025 10/28/2025 left ear now paralelling right. Patient told to schedule appt with Vineet for consultation and possible reprogramming of her hearing aids. [email or web address] Not available 10/28/2025 11:46:35 Plan of Treatment Reminders Order Date Submit Date Provider Last Modified By Organization Details Last Modified Time Details Appointments LUBIN Initial Fitting 2025 09:00A M Charan VALDEZ Not available Not available Not available Lab None recorded . Referral None recorded . Procedures None recorded . Surgeries None recorded . Imaging None recorded . Medication Orders None recorded . Patient TargetsNo targets recorded. Patient InstructionsNo instructions recorded. Reason for Referral None Reported. Problems Name Problem SNOMED Code Status Onset Date Resolution Date Notes Provider Name and Address Organization Details Recorded Time Sensorine ural hearing loss of bilateral ears 903307825 Active 2015 Sensorine ural HL, bilateral ; Note: Date Diagnosed : 04/15/2015 11:48 AM (389.18) ; Start Date : 5 Sensori neural hearing loss, bilateral ; Note: Date Diagnosed : 03/15/2016 2:35 PM (H90.3) Not Available [facility] 4 02:58:05 Disorder of right Eustachia n tube 96873620112 60604 Active 2015 Other specified disorders of Eustachia n tube, right ear; Note: Date Diagnosed : 6 3:42 PM (H69.81) Not Available [facility] 4 02:58:06 Referred otalgia 83612968 Active 2015 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; Note: Date Diagnosed : 6 4:10 PM (388.72) Not Available [facility] 4 02:58:06 Otalgia of right ear 0112212154 Active 2015 Otalgia, right ear; Note: Date Diagnosed : 6 4:09 PM (H92.01) Not Available [facility] 4 02:58:05 Pain of right temporoma ndibular joint 76317850513 638015 Active 2015 Arthralgi a of right temporoma ndibular joint; Note: Changed from M26.62 to M26.621 (08/29/20 16 9:28 AM) , Date Diagnosed : 6 4:10 PM (M26.62) Not Available [facility] 4 02:58:06 Deviated nasal septum 040697341 Active 2020 Deviated nasal septum; Note: Date Diagnosed : 04/01/2021 9:23 AM (J34.2) Not Available [facility] 4 02:58:04 Sensorine ural hearing loss of bilateral ears 077610289 Active 2024 BERYL LI, AUD [address], [address] , [facility] 5 11:37:41 Problem Notes None recorded. Procedures Surgical History Date Name Laterality Status Provider Name and Address Organization Details Recorded Time 10/28/2025 Comp Audio with Tymps - 18809 & 84784 completed BERYL LI, AUD [address], [address], [facility] 10/28/2025 11:42:22 Imaging Results None recorded. Procedure Notes None recorded. Medical Equipment None Reported. Medications Name Sig Start Date Stop Date Status Note LastModified by Organization Details LastModified Time cyclobenz aprine 10 mg tablet TAKE 1 TABLET BY MOUTH THREE TIMES A DAY NEEDED FOR MUSCLE SPASM FOR 5 DAYS active Not Available Not Available No t Available tretinoin 0.1 % topical cream *COSMETI C* APPLY A PEA SIZED AMOUNT ONCE DAILY TO THE FACE active Not Available Not Available No t Available amoxicill in 500 mg capsule TAKE 1 CAPSULE BY MOUTH TWICE A DAY FOR 5 DAYS 09/28 completed Not Available Not Available Not Available neomycin- polymyxin -hydrocor t 3.5 mg/mL-10, 000 unit/mL-1 % ear solution PLACE 2 DROPS IN AFFECTED EAR(S) 3 TIMES A DAY NEEDED 09/28 completed Not Available Not Available Not Available fluconazo le 150 mg tablet TAKE 1 TABLET BY MOUTH NOW THEN REPEAT IN 3 DAYS DIRECTED active Not Available Not Available No t Available valacyclo vir 1 gram tablet TAKE TAKE 2 TABLETS AT ONSET OF SYMPTOMS , REPEAT DOSE 12 HOURS LATER active Not Available Not Available No t Available amoxicill in 500 mg tablet TAKE 1 TABLET BY MOUTH THREE TIMES A DAY 09/28 completed Not Available Not Available Not Available nystatin- triamcino lone 100,000 unit/gram -0.1 % topical ointment APPLY DIRECTED TO AFFECTED AREA TWICE A DAY NEEDED APPLY NEEDED FOR 7-10 DAYS active Not Available Not Available No t Available fluticaso ne propionat e 50 mcg/actua tion nasal spray,leonard pension 2 puff once a day 2020 active Medicati on ID: [id number] D uration Value: 30 Prescri bed By Name: Srini Rosales MD Brand Name: fluticas one propiona te Send Method: E-Prescr ibed Sub s Allowed: subs OK Medic ationGen ericName : fluticas one propiona te Not Available Not Available Not Available doxycycli ne hyclate 100 mg tablet 2019 active Medicati on ID: [id number] B rand Name: doxycycl ine hyclate Send Method: E-Prescr ibed Sub s Allowed: subs OK Medic ationGen ericName : doxycycl ine hyclate Not Available Not Available Not Available amoxicill in 875 mg-potass ium clavulana te 125 mg tablet 2018 active Medicati on ID: [id number] D uration Value: 10 Brand Name: amoxicil tulio-pot clavulan ate Send Method: E-Prescr ibed Sub s Allowed: subs OK Speci al Instruct ion: TAKE 1 TABLET BY MOUTH EVERY 12 HOURS FOR 10 DAYS Med icationG enericNa me: amoxicil tulio-pot clavulan ate Not Available Not Available Not Available neomycin- polymyxin -hydrocor t 3.5 mg-10,000 unit/mL-1 % ear drops,leonard p 2019 active Medicati on ID: [id number] B rand Name: neomycin -polymyx in-HC Se nd Method: E-Prescr ibed Sub s Allowed: subs OK Speci al Instruct ion: PLACE 3 TO 4 DROPS IN AFFECTED EAR (RIGHT) 4 TIMES A DAY FOR 10 DAYS Med icationG enericNa me: neomycin -polymyx in-HC Not Available Not Available Not Available ciproflox acin 0.3 %-dexamet hasone 0.1 % ear drops,leonard pension TAKE 4 DROPS (OTIC (EAR) - RIGHT) 3 TIMES PER DAY FOR 7 DAYS 09/28 completed Not Available Not Available Not Available sodium,po tassium,m ag sulfates 17.5 gram-3.13 gram-1.6 gram oral soln TAKE BY MOUTH FOLLOW DIRECTIO NS PROVIDED BY PHYSICIA N'S OFFICE. active Not Available Not Available No t Available Yuvafem 10 mcg vaginal tablet INSERT 1 TABLET INTO VAGINA EVERY NIGHT FOR 14 DAYS, THEN DECREASE TO TWICE A WEEK active Not Available Not Available No t Available Vitals None Recorded Social History None recorded. Functional Status None recorded. Mental Status None recorded. Family History Nothing Reported. Medical History No medical history recorded. Gynecological HistoryNo gynecological history recorded. Obstetrics History GPAL:G 0 P 0 0 0 0 Past Encounters Encounter ID Performer Location Encounter Start Date Encounter Closed Date Diagnosis/Indication Diagnosis SNOMED-CT Code Diagnosis ICD10 Code Diagnosis IMO Codes Diagnosis Note [id number] Charan VALDEZ [place] - [place] 100 [facility] [address] [address] 09/28/2025 15:58:37 09/28/2025 23:16:34 Sensorineural hearing loss of bilateral ears [id number] H90.3 [id number] CHARAN PARRY [facility] [address] [place] [address] 10/28/2025 11:36:05 10/28/2025 11:46:51 Sensorineural hearing loss of bilateral ears [id number] H90.3 [id number] Audiologic al evaluation results: 10/28/2025 Right ear: Normal sloping to a mild to profound sensorineu ral hearing loss with fair word recognitio n. Left ear: Normal hearing sloping to a mild to profound sensorineu ral hearing loss with fair word recognitio n. Tympanomet ry: Right Ear:Type A Left Ear:Type A Health Concerns Section Related Observation LastModified by Organization Detai ls LastModified Time None Recorded Concern Status LastModified by Organization Details LastModified Time None Recorded Payers Encounter Date Sequence Insurance Name Policy Number Policy Raygoza Covered Member ID Raygoza Member ID Guarantor Name 10/28/2025 1 PRANAY (PPO) [id number] Lora Joy [id number] Lora Joy Notes Date Note Type Note Provider Name and Address Organization Details Recorded Time 10/28/2025 text/html Patient has a known bilateral progressive SNHL hearing loss. Patient of Vineet's. Currently wearing Phonak M 90 R hearing aids dispensed in 2020. BERYL LI, [facility] [address] [facility],[place] [address], [place], [address], [facility] - [facility] 10/28/2025 11:46:50 OBGyn Episode No OBEpisode recorded.
--- OUTSIDE RECORDS SUMMARY | 2025-10-30 11:35 | XMS_ITS | Encounter Summary ---
Author Organization [facility] Address [address] [facility] [address] [place] [address] Phone Care Team Providers Care Shop Hand Name Role Phone Colette Cantu Primary Care Provider [phone] Reason for Visit * Reason Onset Date Comments Referral 09/08/2025 Encounter Details Date Type Department Care Team (Late st Contact Info) Description 09/08/2025 Telephone [facility] [address] [place] [address] Pcp, Unknown Referral Social History Tobacco Use Types Packs/Day Years Used Date Smoking Tobacco: Never Assessed Comments Unknown Sex and Gender Information Value Date Recorded Sex Assigned at Female 09/14/2025 9:37 AM EST Legal Sex Female 10:57 AM EDT Gender Identity Female 09/14/2025 9:36 AM EST Sexual Orientation Straight 09/14/2025 9: 36 AM EST documented as of this encounter Progress Notes * Patti Henriquez - 09/11/2025 11:06 AM EDT Patient called in to follow up on referral. Pt stated she will be dropping this off in person. Please contact and advise. Central Support Copyright Manager (Please do not reply to this user; this inbox is not monitored.) Thank you. * Gavi Hu - 09/10/2025 3:11 PM EDT Pt is following up on her referral. She stated she is bringing it to the the office. Please contact and advise. Central Support Copyright Manager (Please do not reply to this user; this inbox is not monitored.) Thank you. * Kasandra Salgado - 09/08/2025 11:07 AM EDT Pt called in said that referral was faxed 09/07/2025 please review and asee if referral has been received Central Support Copyright Manager (Please do not reply to this user; this inbox is not monitored.) Thank you. documented in this encounter Plan of Treatment Upcoming Encounters Date Type Department Care Team (Late st Contact Info) Description 01/07/2026 8:50 AM EST Office Visit [facility] [address] [place] [address] Ovidio Polo DO [address] [place] [address] documented as of this encounter Visit Diagnoses Not on filedocumented in this encounter Care Teams Shop Hand Relationship Specialty Start Date End Date Colette Cantu PA [address] [place] [address] PCP - General Physician Endless Bed Drum Sander 09/08/25 documented as of this encounter Additional Source Comments The information contained in this document represents components of the legal health record. It is not the complete legal health record.[facility]
--- OUTSIDE RECORDS SUMMARY | 2025-10-30 11:35 | XMS_ITS | Clinical Summary ---
Author Organization [address] [address] Phone Care Team Providers Care Operations Consultant Name Role Phone Unavailable Primary Care Provider Unavailabl e Social History Tobacco Use Types Packs/Day Years Used Date Smoking Tobacco: Never Assessed Comments Unknown Sex and Gender Information Value Date Recorded Sex Assigned at Not on file Legal Sex Female 8:03 AM EST Gender Identity Not on file Sexual Orientation Not on file Plan of Treatment Health Maintenance Due Date Last Done Comments HIV screening 1982 Hepatitis C screening 1987 Tetanus adult (Td q 10,TDAP once) 1989 Cervical cancer screening 1990 Breast cancer screening 2009 Lipid disorder screening 2009 Colon cancer screening, Colonoscopy 2014 Diabetes screening 2014 Pneumococcal Vaccine (50+ ye ars) (1 of 1 - PCV) 2019 Shingles vaccine (Shingrix) (1 of 2 - Shingrix (RZV) 2 Dose Standard Series) 2019 Influenza vaccine 06/12/2025 Covid-19 vaccine series (2 - season) 2025 11/04/2020 RSV Immunization (1 - 1-dose 75+ series) 2044 Meningococcal B Vaccine Aged Out No l onger eligible based on patient's age to complete this topic Meningococcal Vaccine Aged Out No jeremías deysi eligible based on patient's age to complete this topic
--- OUTSIDE RECORDS SUMMARY | 2025-10-30 11:35 | XMS_ITS | Clinical Summary ---
Author Organization [facility] Address [address] [place] [address] Care Team Providers Care Auto Garage Mechanic Name Role Phone Amber Gross MD Unavailable [phone] Colette Cantu PA-C Primary Care Provider [phone] Allergies No known active allergies Medications Yuvafem 10 MCG vaginal tablet 5 Active multivitamin Tab tablet Take 1 tablet by mouth daily. Active ferrous sulfate 324 (65 Fe) MG Tablet Delayed Response Take 324 mg by mouth daily. Active zinc gluconate 50 MG tablet Take 50 mg by mouth daily. Active calcium carbonate (OS-TENA) 600 MG tablet Take 600 mg by mouth every morning with breakfast. Active Vitamin D-Vitamin K (Vitamin K2-Vitamin D3) 90-125 MCG Cap Take by mouth. Active sodium-potassiu m-magnesium sulfates (Suprep Bowel Prep Kit) 17.5-3.13-1.6 GM/177ML Solution solutionIndicat ions:Colon cancer screening Follow directions provided by physician's office. 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 It was initially believed that individuals who carry one pathogenic variant within MUTYH were at slight increased risk for developing colon cancer (6-13%) in their lifetime. Due to the slight elevated risk, past management recommendations included colonoscopy screening every 5 years beginning at the age of 40, or 10 years younger than the earliest diagnosis of colorectal cancer in a first-degree relative. Most current NCCN guidelines (v1.2022) report there is no increased lifetime risk of developing colon cancer in individuals who carry 1 pathogenic variant within MUTYH (Mickey DOTY, et al. Fam Cancer 2021;231:415-422). If an individual carries one pathogenic variant within MUTYH, they are recommended to undergo general population screening via colonoscopy (Deepak Miller, et al. Int J Colorectal Dis 2020;36:5859-9012). If there is a personal or first-degree family history of colon cancer or colon polyps, increased screening may be relevant. A person who carries 1 MUTYH pathogenic variant and is planning to have children may wish to pursue or preconception genetic counseling to determine if their partner is also a carrier of a pathogenic variant within MUTYH. If a person inherits 2 MUTYH pathogenic variants (one from each parent), they will develop MUTYH-associated polyposis (MAP). In the absence of testing for the other parent, full analysis of the MUTYH gene is recommended for the children carriers. All of Ms. Joy'S blood relatives are at an increased risk to carry this alteration as well. We discussed that any siblings and children of Ms. Joy would each have a 50% chance of carrying the specific pathogenic variant identified; likewise, they have 50% chance of not inheriting it. Due to this, genetic testing should be considered by family members to determine potential risk. Family history of malignant neoplasm of breast 0 05/05/2025 Family history of malignant neoplasm of male amaris ast 05/05/2025 Encounters Date Type Department Care Team Description 08/25/2025 11:00 AM EDT Consult [facility] [address] [address] Gladis Molina PA-C Colon cancer screening (Primary Dx) from Last 3 Months Family History Medical History Relation Name Comments Breast cancer Maternal Cousin 1 Breast cancer Maternal Cousin 2 pauly Breast cancer Maternal Grandmother Guitemina Cancer, Bladder Maternal Uncle 1 Cancer Maternal Uncle 3 unsure type Breast cancer Mother Osiris Breast cancer Paternal Aunt 1 Breast cancer Paternal Grandmother Paresh Relation Name Status Comments Daughter Alive Father (Age 68) Maternal Cousin 1 (Age 30's) Maternal Cousin 2 pauly Maternal Cousin 3 Alive Maternal Cousin 4 Alive Maternal Cousin 5 Alive Maternal Grandfather (Age 70) Maternal Grandmother Vidya (Age 83) Maternal Uncle 1 Alive Maternal Uncle 2 Alive Maternal Uncle 3 (Age 70's) Maternal Uncle 4 (Age 82) Mother Osiris Alive Other Alive Paternal Aunt 1 (Age 50's) Paternal Aunt 2 Alive Paternal Grandfather Paternal Grandmother Paresh (Age 90) Paternal Uncle 1 Alive Paternal Uncle 2 Alive Paternal Uncle 3 Alive Son Alive Social History Tobacco Use Types Packs/Day Years Used Date Smoking Tobacco: Never Smokeless Tobacco: Never Alcohol Use Standard Drinks/Week Comments Never 0 [...] Sign Reading Time Taken Comments Blood Pressure 118/62 08/25/2025 10:22 AM EDT Pulse 76 08/25/2025 10:22 AM EDT Temperature - - Respiratory Rate - - Oxygen Saturation - - Inhaled Oxygen Concentration - - Weight 57.2 kg (126 lb) 08/25/2025 10:22 AM EDT Height 160 cm (5' 3 ) 08/25/2025 10:22 AM EDT Body Mass Index 22.32 08/25/2025 10:22 AM EDT Plan of Treatment Upcoming Encounters Date Type Department Care Team (Late st Contact Info) Description 02/15/2026 10:45 AM EDT Consult [facility] [address] [facility] [address] [place] [address] Amber Gross MD [address] [place] [address] [address] [place] [address] Rafael Lala MD [address] [place] [address] 1[address] [place] [address] Health Maintenance Due Date Last Done Comments Hepatitis C Virus Screening 1969 HIV Screening 1982 DTaP/Tdap/Td Vaccines (1 - Tdap) 1988 Hepatitis B Vaccines (1 of 3 - 19+ 3-dose series) 1988 Pap Smear (Ages 21-65) 1990 Colonoscopy 2014 Pneumococcal Vaccines 50+ (1 of 1 - PCV) 2019 Zoster (Shingles) Vaccine (1 of 2) 2019 Influenza Vaccine 06/12/2025 COVID-19 Vaccine (3 - 2024- season) 2025, 11/04/2020 Mammogram 05/05/2027 05/05/2025, 05/05/2025 RSV Vaccine 50 years and old er and Patients (1 - 1-dose 75+ series) 2044 Procedures Procedure Name Priority Date/Time Associated Diagnosis Comments IMAGING DEXA Routine 09/03/2025 3:57 PM EDT MM MAMMO SCREENING W/ TOMOSYNTHESIS BILATERAL Routine 05/05/2025 2:31 PM EDT from Last 3 Months or Most Recently Relevant to Health Maintenance Results * Imaging Dexa (09/03/2025 3:57 PM EDT) Anatomical Region Laterality Modality Other us External Provider MD [facility] Final Result * MM Breast tomosynthesis screening-Bilateral (05/05/2025 2:31 PM EDT) Anatomical Region Laterality Modality Breast Bilateral Mammography us External Provider IMLara MAMMOGRAPHY ORDERABLES Final Result from Last 3 Months or Most Recently Relevant to Health Maintenance [facility] Care Teams Auto Garage Mechanic Relationship Specialty Start Date End Date Colette Cantu PA-C [address] [place] [address] PCP - General Medicine Hospitalist 03/06/25 Amber Gross MD [address] [place] [address] [address] [place] [address] Physician Obstetrics and Gynecology 03/06/25
--- OUTSIDE RECORDS SUMMARY | 2025-10-30 11:35 | XMS_ITS | Data Portability ---
Author Organization [place] - [facility], Allergy Address [address] [address] Assessment Encounter Date Assessment Date Assessment LastModified by Organization Details LastModified Time 09/28/2025 09/28/2025 Patient's hearing is reportedly stable. She did not have her new health insurance card with her today so we were not able to test her hearing due to no insurance. Reprogramming was not recommended given the patient's satisfaction with sound quality. The patient would like to continue using the device without any changes to programming or any components. Recommend continued annual appointments to ensure that the devices are working to their best potential and to rule out any changes in hearing or need to reprogram the devices. Urgent visits can always be requested or the patient can also utilize our drop-off repair program. [email or web address] Not available 09/28/2025 16:28:58 10/28/2025 10/28/2025 left ear now paralelling right. Patient told to schedule appt with Vineet for consultation and possible reprogramming of her hearing aids. Not available 10/28/2025 11:46:35 Plan of Treatment [...] Sensorine ural hearing loss of bilateral ears [id number] Active 2015 Sensorine ural HL, bilateral ; Note: Date Diagnosed : 04/15/2015 11:48 AM (389.18) ; Start Date : 5 Sensori neural hearing loss, bilateral ; Note: Date Diagnosed : 03/15/2016 2:35 PM (H90.3) Not Available [facility] 4 02:58:05 Disorder of right Eustachia n tube [id number] 11883 Active 2015 Other specified disorders of Eustachia n tube, right ear; Note: Date Diagnosed : 6 3:42 PM (H69.81) Not Available [facility] 4 02:58:06 Referred otalgia 70169107 Active 2015 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; Note: Date Diagnosed : 6 4:10 PM (388.72) Not Available [facility] 4 02:58:06 Otalgia of right ear 6215376125 Active 2015 Otalgia, right ear; Note: Date Diagnosed : 6 4:09 PM (H92.01) Not Available [facility] 4 02:58:05 Pain of right temporoma ndibular joint [id number] 706061 Active 2015 Arthralgi a of right temporoma ndibular joint; Note: Changed from M26.62 to M26.621 (08/29/20 16 9:28 AM) , Date Diagnosed : 6 4:10 PM (M26.62) Not Available [facility] 4 02:58:06 Deviated nasal septum 142142796 Active 2020 Deviated nasal septum; Note: Date Diagnosed : 04/01/2021 9:23 AM (J34.2) Not Available [facility] 4 02:58:04 Sensorine ural hearing loss of bilateral ears 498436859 Active 2024 BERYL LI, [facility] 100 [facility],[place] [address], [place], [address] , [facility] - [facility] 5 11:37:41 Problem Notes None recorded. Procedures Surgical History Date Name Laterality Status Provider Name and Address Organization Details Recorded Time 10/28/2025 Comp Audio with Tymps - 38691 & 59856 completed BERYL LI, [facility] 100 [facility],[place] [address], [place], [address], [place] - [facility] 10/28/2025 11:42:22 Imaging Results None recorded. Procedure [...] a day 2020 active Medicati on ID: [id number] D uration Value: 30 Prescri bed By Name: Srini Rosales MD Brand Name: fluticas one propiona te Send Method: E-Prescr ibed Sub s Allowed: subs OK Medic ationGen ericName : fluticas one propiona te Not Available Not Available Not Available doxycycli ne hyclate 100 mg tablet 2019 active Medicati on ID: [id number] B rand Name: doxycycl ine hyclate Send Method: E-Prescr ibed Sub s Allowed: subs OK Medic ationGen ericName : doxycycl ine hyclate Not Available Not Available Not Available amoxicill in 875 mg-potass ium clavulana te 125 mg tablet 2018 active Medicati on ID: [id number] D uration Value: 10 Brand Name: amoxicil [...] drops,leonard p 2019 active Medicati on ID: [id number] B rand Name: neomycin -polymyx in-HC Se [...] ICD10 Code Diagnosis IMO Codes Diagnosis Note [id number] Charan VALDEZ [place] [place] 100 [facility], [place]e [address] [place] [address] 09/28/2025 15:58:37 09/28/2025 23:16:34 Sensorineural hearing loss of bilateral ears [id number] H90.3 [id number] CHARAN PARRY [facility] [address] [place] [address] 10/28/2025 11:36:05 10/28/2025 11:46:51 Sensorineural hearing loss of bilateral ears [id number] H90.3 [id number] Audiologic al evaluation results: 10/28/2025 Right ear: [...] by Organization Details LastModified Time None Recorded Advance Directives Directive None Recorded Payers Insurance Date Sequence Insurance Name Policy Number Policy Raygoza Covered Member ID Raygoza Member ID Guarantor Name 09/28/2025 SELF-PAY ([place]GUIRE) Lora Joy 10/26/2025 1 [facility] ([place]) [id number] Lora Joy [id number] Lora Joy Notes Date Note Type Note Provider Name and Address Organization Details Recorded Time 09/28/2025 text/html Hearing Technolo gy HistoryReported by PatientReported status of current hearing technologyFor sound quality and programming settings, patient reportsthat they are satisfied with current settings and technology. For daily use, patient reportsconsistent use of technology. For reported condition, patient reportsin working condition. Patient returned for their annual fitting of amplification to discuss their ongoing communication needs and progress with amplification. They reported stable hearing. The devices are in warranty at this time. Charan VALDEZ 100 [facility] 100, [place], [address], [facility] - [facility] 09/28/2025 16:29:10 10/28/2025 text/html Patient has a known bilateral progressive SNHL hearing loss. Patient of Kimber Currently wearing Phonak M 90 R hearing aids dispensed in 2020. BERYL LI, [facility] 100 [facility],[place] [address], [place], [address], [facility] - [facility] 10/28/2025 11:46:50 OBGyn Episode No OBEpisode recorded.
--- OUTSIDE RECORDS SUMMARY | 2025-10-30 11:35 | XMS_ITS | Clinical Summary ---
Author Organization [facility] Prior to 04/11/[address] [place] [address] Care Team Providers Care Windows Vmware Engineer Name Role Phone Sarai Mejia MD Primary Care Provider Immunizations Name Administration Dates Next Due Covid-19 [...] Cancer Screening (Mammogram) 11/26/2020 11/26/2018 COVID-19 Vaccine (2024-2 6 season) 2025 11/04/2020 Influenza Vaccine (#1) 2025 Pneumococcal Vaccine Aged Out No long er eligible based on patient's age to complete this topic RSV Ped < 20 months Aged Out No longe r eligible based on patient's age to complete this topic Care Teams Windows Vmware Engineer Relationship Specialty Start Date End Date Sarai Mejia MD [address] [facility] [place] [address] PCP - General Monitor Worker 11/26/18
--- OUTSIDE RECORDS SUMMARY | 2025-10-30 11:35 | XMS_ITS | Continuity of Care Document ---
Author Organization [place] - [facility] Address [address] [place] [address] Assessment Encounter Date Assessment Date Assessment LastModified [...] can also utilize our drop-off repair program. Not available 09/28/2025 16:28:58 Plan of Treatment Reminders Order Date Submit Date Provider Last Modified By Organization Details Last Modified Time Details Appointments LUBIN Initial Fitting 2025 09:00A Charan VILLAVICENCIO Not available Not available Not available Lab [...] Sensorine ural hearing loss of bilateral ears [id number] Active 2015 Sensorine ural HL, bilateral ; Note: Date Diagnosed : 04/15/2015 11:48 AM (389.18) ; Start Date : 5 Sensori neural hearing loss, bilateral ; Note: Date Diagnosed : 03/15/2016 2:35 PM (H90.3) Not Available [facility] 4 02:58:05 Disorder of right Eustachia n tube 54391709993 19627 Active 2015 Other specified disorders of Eustachia n tube, right ear; Note: Date Diagnosed : 6 3:42 PM (H69.81) Not Available [facility] 4 02:58:06 Referred otalgia 84159017 Active 2015 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; Note: Date Diagnosed : 6 4:10 PM (388.72) Not Available [facility] 4 02:58:06 Otalgia of right ear 9375886785 Active 2015 Otalgia, right ear; Note: Date Diagnosed : 6 4:09 PM (H92.01) Not Available [facility] 4 02:58:05 Pain of right temporoma ndibular joint 69171164416 981369 Active 2015 Arthralgi a of right temporoma ndibular joint; Note: Changed from M26.62 to M26.621 (08/29/20 16 9:28 AM) , Date Diagnosed : 6 4:10 PM (M26.62) Not Available [facility] 4 02:58:06 Deviated nasal septum 454147226 Active 2020 Deviated nasal septum; Note: Date Diagnosed : 04/01/2021 9:23 AM (J34.2) Not Available [facility] 4 02:58:04 Sensorine ural hearing loss of bilateral ears 434048694 Active 2024 BERYL LI, CHARAN [address] [place] [address], [place], [id number] , [facility] - [facility] 5 11:37:41 Problem Notes None recorded. Procedures Surgical History Date Name Laterality Status Provider Name and Address Organization Details Recorded Time 10/28/2025 Comp Audio with Tymps - 86324 & 52504 completed CHARAN PARRY 100 [facility],[place] [address], [place], [address], [facility] - [facility] 10/28/2025 11:42:22 Imaging Results None recorded. [...] a day 2020 active Medicati on ID: [id number] D uration Value: 30 Prescri bed By Name: Srini Rosales MD Brand Name: fluticas one propiona te Send Method: E-Prescr ibed Sub s Allowed: subs OK Medic ationGen ericName : fluticas one propiona te Not Available Not Available Not Available doxycycli ne hyclate 100 mg tablet 2019 active Medicati on ID: [id number] B rand Name: doxycycl ine hyclate Send Method: E-Prescr ibed Sub s Allowed: subs OK Medic ationGen ericName : doxycycl ine hyclate Not Available Not Available Not Available amoxicill in 875 mg-potass ium clavulana te 125 mg tablet 2018 active Medicati on ID: [id number] D uration Value: 10 Brand Name: amoxicil [...] drops,leonard p 2019 active Medicati on ID: [id number] B rand Name: neomycin -polymyx in-HC Se [...] ICD10 Code Diagnosis IMO Codes Diagnosis Note [id number] Charan VALDEZ [place]IN - [place] 100 [facility] 100 [facility] [place] [address] 09/28/2025 15:58:37 09/28/2025 23:16:34 Sensorineural hearing loss of bilateral ears 442379482 H90.3 Health Concerns Section Related Observation LastModified by Organization Detai ls LastModified Time None Recorded Concern Status LastModified by Organization Details LastModified Time None Recorded Payers Encounter Date Sequence Insurance Name Policy Number Policy Raygoza Covered Member ID Raygoza Member ID Guarantor Name 09/28/2025 SELF-PAY (MCGUIRE) Lora Joy Notes Date Note Type Note [...] devices are in warranty at this time. MAURISIO JONES, [facility] 100 [facility],[place] [address], [place], [address], [facility] - [facility] 09/28/2025 16:29:10 OBGyn Episode No OBEpisode recorded.
--- OUTSIDE RECORDS SUMMARY | 2025-10-30 11:35 | XMS_ITS | Encounter Summary ---
Author Organization [facility] Address [address] [place] [address] Care Team Providers Care Pharmacy Care Coordinator Name Role Phone Unavailable Primary Care Provider Unavailabl e Encounter Details Date Type Department Care Team (Late st Contact Info) Description 01/17/2021 Orders Only Surgery [address] [place] [address] Juan Carlos Turner MD [address] [place] [address] Social History Tobacco Use Types [...]
== END 2025-10-30 11:24 | disposition home or self-care (01) ==
LOC: HO.HMCWIS 10:14
PROVIDERS: PCP Internal Medicine; Visit Provider Family Medicine
DX: H69.93 Unspecified Eustachian tube disorder, bilateral (principal)